=== PATIENT | male | born 1965 | race Caucasian/White ===

== ENCOUNTER 2019-12-23 07:12 | Observation (INO) | payer OTHER, SELFPAY ==
[2019-12-23] VITALS (14 sets, daily range): BP systolic 111–151; BP diastolic 69–85; PULSE 81–102; RESP 12–20; TEMP 36.7–36.9; O2SAT 97–100; BMI 31.6
--- NOTE | ~2019-12-23 | CT_ITS ---
EXAMINATION: CT brain wo con DATE: 12/23/2019 07:47 INDICATION: Headache post fall. Feels off balance. TECHNIQUE: Computed tomography (CT) of the head was performed without intravenous contrast. Sagittal and coronal reconstructions were performed. The mA was adjusted according to patient size. Iterative reconstruction technique was employed. The dose-length product was 681.00 mGy-cm. COMPARISON: None FINDINGS: No fracture. No acute intracranial hemorrhage, acute infarction or abnormal extra axial fluid collect ion. Ventricles are normal and symmetric. No mass/mass effect. The orbits, paranasal sinuses and mast oid air cells are normal. IMPRESSION: 1. No fracture or acute intracranial process. Reviewed, dictated and finalized at location A.
--- NOTE | ~2019-12-23 | CT_ITS ---
EXAMINATION: CT cervical spine wo con DATE: 12/23/2019 07:47 INDICATION: Neck pain post fall 2 days prior. TECHNIQUE: Computed tomography (CT) of the cervical spine was performed without intravenous contrast. Automated exposure control and iterative reconstruction technique were employed. The dose-length pro duct was 561.57 mGy-cm. COMPARISON: None FINDINGS: Mild reversal of the normal cervical lordosis. No spondylolisthesis or facet subluxation. Vertebral b alberto heights are normal. No fracture. Mild disc height loss at C2-C3 T5 C6 through C7-T1 and moderate disc height loss at T1-T2 and T2-T3. Bulky anterior osteophytes at C4-C5 through C6-C7. Visualized ai rway and apices of lungs are clear. Cervical soft tissues are unremarkable. The following disc levels are specifically discussed: C2-C3: Disc is mildly bulging. There is mild bilateral uncovertebral joint osteoarthritis. There is m ild bilateral facet joint osteoarthritis. There is no neural foraminal stenosis. There is no central canal stenosis. C3-C4: Disc is mildly bulging. There is mild bilateral uncovertebral joint osteoarthritis. There is m ild right and severe left facet joint osteoarthritis. There is mild left neural foraminal stenosis. T here is no central canal stenosis. C4-C5: Disc is mildly bulging. There is mild bilateral uncovertebral joint osteoarthritis. There is m ild right and moderate left facet joint osteoarthritis. There is mild bilateral neural foraminal sten osis. There is no central canal stenosis. C5-C6: Disc is bulging. There is mild right and moderate left uncovertebral joint osteoarthritis. The re is mild bilateral facet joint osteoarthritis. There is mild bilateral neural foraminal stenosis. T here is mild central canal stenosis. C6-C7: Disc is bulging. There is moderate bilateral uncovertebral joint osteoarthritis. There is mode rate bilateral facet joint osteoarthritis. There is mild bilateral neural foraminal stenosis. There i s mild to moderate central canal stenosis. C7-T1: Disc is bulging. There is moderate bilateral uncovertebral joint osteoarthritis. There is placido re bilateral facet joint osteoarthritis. There is mild bilateral neural foraminal stenosis. There is mild central canal stenosis. T1-T2 and T2-T3: Contrast of the soft tissues is insufficient to assess for disc bulges are secondary central canal stenosis. No stenosis of the osseous central canal. There is severe bilateral facet os teoarthritis contributing to mild to moderate neural foraminal stenosis at both levels. IMPRESSION: 1. Mild to moderate cervical and upper thoracic spondylosis. No acute osseous abnormality. Reviewed, dictated and finalized at location A. IMPRESSION: 1. Mild to moderate cervical and upper thoracic spondylosis. No acute osseous a bnormality.
--- NOTE | 2019-12-23 07:32 | ED.GENADULT ---
HPI - General Adult General Chief complaint: Head Injury Stated complaint: fall Source: patient History of Present Illness HPI narrative: Patient is a 54 y/o male complaining of severe headache and neck after a fall 2 days ago. He states that he slipped in the shower and struck his head on side of bath tub. He denies having LOC. He describes his headache as sharp and rates it 8-9/10. There is no alleviating or exacerbating factor. He has no taken any meds for pain. He has no nausea, vomiting or any focal weakness/numbness. He has not sought medical attention prior to coming to ED today. He states that he had last Tetanus in June this morning during routine visit with his PCP. He also states that he usually has 2 drinks a day, but has not been drinking for several days. Related Data Home Medications Medication Instructions Recorded Confirmed atenolol 25 mg PO DAILY 12/23/19 citalopram [Celexa] 10 mg PO DAILY 12/23/19 hydrochlorothiazide 25 mg PO DAILY 12/23/19 losartan 50 mg PO DAILY 12/23/19 Allergies Allergy/AdvReac Type Severity Reaction Status Date / Time No Known Allergies Allergy Verified 12/23/19 07:49 Review of Systems Constitutional: Constitutional: Denies chills, Denies fever(s), Reports headache(s) and Denies weakness Eyes: Eyes: Denies blurry vision ENT: Reports headache(s) and Denies neck pain Cardiovascular: Cardiovascular: Denies chest pain and Denies dyspnea Respiratory: Respiratory: Denies cough and Denies dyspnea Gastrointestinal: Gastrointestinal: Denies abdominal pain, Denies diarrhea, Denies nausea and Denies vomiting Genitourinary: Genitourinary: Denies hematuria and Denies dysuria Musculoskeletal: Musculoskeletal: Reports as per HPI, Denies back pain, Denies neck pain and Reports other (neck pain) Neurologic: Reports headache(s) and Denies weakness [facility] Family History Family History (Updated 12/23/19 @ 15:28 by Mindi Cartagena RN) Other Adopted Social History Social History Smoking status: Current every day smoker Tobacco type: cigarettes Alcohol intake: former Drinks per week: 8 Substance use: never Substance use type: does not use Last use: patient states he last drank alcohol 3 days ago, but is quitting. Gender identity (if verbalized by the patient): Male Spiritual care concerns: No Exam Const: General: no acute distress and well developed Orientation/consciousness: oriented to person, oriented to place, oriented to time and patient oriented x3 HENMT: Head: normocephalic Ears: external ears normal General nose exam: Normal external nose present Eyes: General: appearance normal, both eyes and all related structures Conjunctivae: conjunctivae normal Neck: Neck: normal visual inspection and full ROM Chest: Chest palpation & inspection: normal inspection of the chest and no tenderness Resp: Effort & Inspection: normal respiratory effort and able to speak in complete sentences Cardio: Rate: regular rate Rhythm: regular rhythm GI: GI Palp: No abdominal tenderness and Yes Soft to palpation Skin: General skin exam: normal color and turgor normal Trauma: laceration (healing laceration occipital scalp) Neuro: General: oriented to person, oriented to place, oriented to time and patient oriented x3 Cranial nerves: Yes CN's II-XII intact bilaterally Cognition (Neuro): normal cognition Speech: normal speech Motor exam (neuro): 5/5 motor strength present throughout Sensory Exam: normal sensation Coordination: [id number] test normal and [id number] test normal Extrem: General: normal to inspection, full ROM and no pedal edema Psych: Appearance: grossly normal Mental Status: mental status grossly normal Affect: normal affect Course Consultations Consultation #1: Discussed with RASHID Ortiz, who agrees to admit to Dr. Delgadillo. Date: 12/23/19 Vital Signs Vital signs: Vital Signs
[2019-12-23] MEDS: ACETAMINOPHEN 325 MG TABLET 650 MG PO ×2 (07:51→17:22)
[2019-12-23] MEDS: KETOROLAC (*BKC) 60 MG/2 ML VIAL IM (09:12)
[2019-12-23] MEDS: chlordiazePOXIDE 25 MG CAPSULE PO ×2 (10:26→23:11)
[2019-12-23 10:42] LABS: Basophils Percent Auto 0.6 % (0.2-1.2); Eosinophils Absolute Auto 2.7 K/mm3 (0-0.3); Eosinophils Percent Auto 39.4 % (0-4.4); Hematocrit 33.9 % (42.0-52.0); Hemoglobin 10.7 g/dL (14.0-18.0); Immature Granulocyte Absolute 0.02 K/mm3 (0.00-0.031); Immature Granulocyte Percent A 0.3 % (0-0.5); Lymphocytes Absolute Auto 0.96 K/mm3 (0.9-3.2); Lymphocytes Percent Auto 14.1 % (18.3-44.2); Mean Corpuscular HGB Conc 31.6 g/dl (32-36); Mean Corpuscular Hemoglobin 22.9 pg (26-34); Mean Corpuscular Volume 72.4 fl (80-100); Mean Platelet Volume 8.6 fl (7.4-10.4); Monocytes Absolute Auto 0.5 K/mm3 (0.1-0.6); Monocytes Percent Auto 6.7 % (2.6-8.5); Neutrophils Absolute Auto 2.7 K/mm3 (1.3-6.7); Neutrophils Percent Auto 38.9 % (45.5-73.1); Platelet Count Result 183 k/mm3 (150-375); Red Blood Count 4.68 M/mm3 (4.6-6.20); Red Cell Distribution Width 18.7 % (11.5-14.5); White Blood Count 6.8 K/mm3 (4.5-10.0)
[2019-12-23 10:52] LABS: Ethanol 38 mg/dL (<10)
[2019-12-23 10:53] LABS: Alanine Aminotransferase 35 U/L (4-50); Albumin Level 4.9 g/dL (3.5-5.1); Alkaline Phosphatase 127 U/L (38-126); Anion Gap 22 mmol/L (8-16); Aspartate Amino Transferase 80 U/L (17-59); Blood Urea Nitrogen 18 mg/dL (9-20); Calcium 9.3 mg/dL (8.4-10.2); Carbon Dioxide 22 mmol/L (22-30); Chloride 90 mmol/L (98-107); Estimated CRCL calculation 122 ml/min; Estimated Glomerular Filt Rate > 60; Glucose 128 mg/dL (75-110); Potassium 4.1 mmol/L (3.4-5.0); Sodium 134 mmol/L (137-145)
[2019-12-23 11:36] LABS: Add Urine Microscopic? YES; Appearance Urine Clear (Clear); Bacteria Urine Trace /hpf; Bilirubin Urine Negative (Negative); Blood Urine Negative (Negative); Color Urine Yellow (Yellow); Glucose Urine UA Negative (Negative); Ketones Urine 1+ mg/dL (Negative); Leukocyte Esterase Ur Negative LEU/UL (Negative); Mucus Urine Heavy /lpf; Nitrate Urine Negative (Negative); Protein Urine 1+ mg/dL (Negative); RBC Urine 0-2 /hpf (0-2); Specific Grav Ur 1.015 (1.001-1.035); Squamous Epithelial Cell Urine Rare /hpf (Few); Urobilinogen Urine Negative mg/dL (<2.0)
--- NOTE | 2019-12-23 15:20 | ADMGEN ---
This patient, Pool Cid, was admitted to 2 Medical Room 249-01. Patient/family oriented to hospital policies and general routines including ID bracelet, bed and alarms, visiting hours, pain management, procedures, bathroom and other care routines, personal items, smoking policy, room service/diet, and visiting hours. Valuables list has been completed. Information on how to activate the Rapid Response Team has been discussed. Patient/Family are encouraged to report perceived risks to care and to ask questions if they do not understand what they are told or what they should do. Report received from AMRIK Lamas.
[2019-12-23] MEDS: THIAMINE HCL 200 MG/2 ML VIAL 100 MG IV PUSH (17:23)
[2019-12-23] MEDS: chlordiazePOXIDE 10 MG CAPSULE PO (17:33)
[2019-12-23 17:56] LABS: INR 1.2; Prothrombin Time 14.6 Seconds (11.1-14.7)
[2019-12-23 17:57] LABS: Partial Thromboplastin Time 27.4 SECONDS (22.3-36.8)
[2019-12-23 17:58] LABS: Anion Gap 19 mmol/L (8-16); Blood Urea Nitrogen 21 mg/dL (9-20); Calcium 9.3 mg/dL (8.4-10.2); Carbon Dioxide 25 mmol/L (22-30); Chloride 89 mmol/L (98-107); Estimated CRCL calculation 121 ml/min; Estimated Glomerular Filt Rate > 60; Glucose 121 mg/dL (75-110); Magnesium 2.2 mg/dL (1.6-2.3); Potassium 4.5 mmol/L (3.4-5.0); Sodium 133 mmol/L (137-145)
[2019-12-23 18:27] LABS: Amphetamine Screen Urine Negative (Negative); Barbiturate Screen Urine Negative (Negative); Benzodiazepines Screen Urine Negative (Negative); Cannabinoid Screen Urine Negative (Negative); Cocaine Screen Urine Negative (Negative); Methadone Screen Urine Negative (Negative); Opiate Screen Urine Negative (Negative); Phencyclidine Screen Urine Negative (Negative)
[2019-12-23 19:25] LABS: Folic Acid > 20.0 ng/mL (2.76->20)
[2019-12-23 19:27] LABS: Iron 66 ug/dL (49-181)
[2019-12-23 19:36] LABS: Percent Iron Saturation 14 % (20-50)
--- NOTE | 2019-12-23 19:45 | PM.IMHP ---
H&P: HPI History of Present Illness Date/Time: 12/23/19 19:45 Chief complaint: Balance problems after head injury 2 days ago. Narrative: Pool Cid is a 54-year-old male with history of alcohol abuse, hypertension, type 2 diabetes mellitus no longer on medication after bariatric surgery, and diabetic peripheral neuropathy who presented to the emergency department earlier today via EMS from a local motel for evaluation of balance issues after a fall. He is from [place] and is en route to deliver a dog to his mother in [place]. He got into town on , and apparently consumed a significant amount of alcohol that evening. The following day when he was getting out of the shower, he slipped and fell, striking the back of his head. He does not believe the fall was due to his alcohol consumption, and instead blames it on his neuropathy and it sounds as though he has poor balance because of such. He had no loss of consciousness with the head injury, and denies any other injuries. Since that time, he has been more off balance than usual, to the point where he is having to hold onto furniture or gale to help steady himself. I feel like I am falling sometimes. Because of the balance issues, he decided to stay a couple of extra days as he did not feel comfortable driving. Today he was not a whole lot better, and decided to call the ambulance to come in for evaluation. At the time my evaluation he is complaining of a stabbing and throbbing headache where he sustained his laceration, rating the pain an 8/10. He has not gotten any relief with the morphine given to him. Additionally, he complains of anxiety and tremors, which he blames on mild alcohol withdrawal as he has not had a drink since . With regards to his alcohol consumption, he tells me that he is more of a binge drinker, but does not give me specific quantities. He denies ever having signs or symptoms of significant alcohol withdrawal, or alcohol withdrawal seizures. He also denies auditory and visual changes. Specifically no tinnitus or aural fullness. He has not felt lightheaded, it does not sound as though he has tech spoke vertigo either. He denies that his balance is worse with change in position or change in head position. He denies focal weakness and paresthesias (other than that of his chronic neuropathy which is mainly in his feet). No chest pain, pleuritic pain, or palpitations. Review of Systems Review of Systems: Narrative: Twelve systems were reviewed with pertinent positives and negatives as per HPI. No fever, chills, or sweats. No recent cold or flu symptoms. He denies cough and shortness of breath. No dysphagia. He is scheduled to have vocal cord polyps removed in the next coming weeks. A recent colonoscopy demonstrated several benign colon polyps. Apparently that colonoscopy was prompted due to iron deficiency anemia, and he is now taking iron. He has diarrhea on occasion. He denies nausea and vomiting. No dysuria. No urinary or bladder incontinence. He denies back pain. No saddle anesthesia. Except as documented, all other systems were reviewed and are regular. [facility] Past Medical History Medical History (Updated 12/23/19 @ 23:44 by Diana Roy PA-C) Alcohol abuse Anxiety Diet-controlled diabetes mellitus No longer on medication after gastric bypass. Hypertension Peripheral neuropathy Surgical History Surgical History (Updated 12/23/19 @ 23:37 by Diana Roy PA-C) Gastric bypass status for obesity (~2007) History of appendectomy History of repair of right rotator cuff History of reverse total replacement of right shoulder joint Family History Family History (Updated 12/23/19 @ 15:28 by Mindi Cartagena RN) Other Adopted Social History Social History (Updated 12/23/19 @ 23:41 by Diana Roy PA-C) Social History: The patient lives in [place] with his and 2 dogs. They have grown children. He was a [employer]
[2019-12-23] MEDS: SODIUM CHLORIDE 0.9% IV 1,000 ML 999 ML IV CONT (21:51)
[2019-12-23] MEDS: MORPHINE SULFATE 2 MG/ML INJ IV PUSH (21:52)
[2019-12-23] MEDS: traMADol HCL 50 MG TABLET PO (23:11)
[2019-12-24] VITALS (13 sets, daily range): BP systolic 107–126; BP diastolic 66–78; PULSE 59–92; RESP 12–20; TEMP 36.2–37.2; O2SAT 95–100
[2019-12-24] MEDS: MORPHINE SULFATE 2 MG/ML INJ IV PUSH ×3 (04:26→20:29)
[2019-12-24] MEDS: chlordiazePOXIDE 25 MG CAPSULE PO ×3 (05:55→22:00)
[2019-12-24] MEDS: traMADol HCL 50 MG TABLET PO ×2 (05:55→14:32)
[2019-12-24] MEDS: FOLIC ACID 1 MG TABLET PO (09:06)
[2019-12-24] MEDS: THIAMINE HCL 100 MG TABLET PO (09:06)
[2019-12-24] MEDS: LOSARTAN POTASSIUM 50 MG TABLET PO (09:06)
[2019-12-24] MEDS: CITALOPRAM HYDROBROMIDE 10 MG TABLET PO (09:07)
[2019-12-24] MEDS: atenoloL 25 MG TABLET PO (09:07)
--- NOTE | 2019-12-24 16:19 | PM.IMPN ---
Progress Note: A&P Assessment and Plan (1) Alcohol abuse: Code(s): F10.10 - Alcohol abuse, uncomplicated Status: Acute Assessment and Plan: Patient CIWA score on arrival was 8-9 and he was started on Librium q.6 hours. He still having some slight tremors but otherwise feeling less anxious and is see while has been 2-3 today. I am going to wean down Librium and give 25 mg tonight and then 10 mg in the morning. If his CIWA score is still stable and he is asymptomatic we will not need to discharge him on any more Librium since he will be traveling in [facility] to [place] to see his mom Continue Thiamine and folic acid supplementation. continue monitoring patient's alcohol withdrawal symptoms and possibly discharge tomorrow if everything is within normal range. (2) Gait instability: Code(s): R26.81 - Unsteadiness on feet Status: Acute Assessment and Plan: He has chronic gait issues due to peripheral neuropathy, but it has been markedly worse since his head injury. He may very well have some instability secondary to a concussion. he does have a history of bariatric surgery but his vitamin B12 and folic acid were both normal which can sometimes cause gait disturbance. His neurologic examination was normal, he is not having any worsening symptoms at this time. Physical therapy worked with him and felt that his gait disturbance was most likely due to his neuropathy and no other acute abnormality. Will evaluate him overnight and see how he is feeling in the morning for further evaluation possible discharge. Initiate fall precautions. (3) Fall in bathtub: Code(s): W18.2XXA - Fall in (into) shower or empty bathtub, initial encounter Status: Acute Assessment and Plan: Patient reports a mechanical fall 2 days ago in the bathtub, but he believes his neuropathy had something to do with it but he was also very intoxicated as well. 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 She did not feel that when he walked he lean to 1 side, appeared to have stroke-like symptoms, or appeared to have ataxia from another cause. She believe most of his gait disturbances most likely from his neuropathy. Occupational therapy evaluated him and felt he could be discharged from their service. Initiate fall precautions. Will continue monitoring the patient with physical therapy and potentially discharge tomorrow if feeling better. (4) Laceration of scalp: Qualifiers: Encounter type: initial encounter Qualified Code(s): S01.01XA - Laceration without foreign body of scalp, initial encounter Code(s): S01.01XA - Laceration without foreign body of scalp, initial encounter Status: Acute Assessment and Plan: Obtained in fall 2 days ago And otherwise laceration had already been scabbed over and they did not feel he needed any further clean, gagandeep at this time. Up-to-date on tetanus shot. (5) Hypertension: Code(s): I10 - Essential (primary) hypertension Status: Acute Assessment and Plan: Blood pressures were reviewed and Are well controlled today. Continue antihypertensives and monitor daily. (6) Anxiety: Code(s): F41.9 - Anxiety disorder, unspecified Status: Acute Assessment and Plan: Continue citalopram. (7) Peripheral neuropathy: Code(s): G62.9 - Polyneuropathy, unspecified Status: Acute Assessment and Plan: Certainly a precipitating factor i
[2019-12-25] VITALS: PULSE 56
[2019-12-25 04:00] VITALS: PULSE 58
[2019-12-25 05:47] VITALS: BP 112/78; PULSE 85; RESP 20; TEMP 36.5; O2SAT 96
[2019-12-25 05:53] LABS: Anion Gap 7 mmol/L (8-16); Blood Urea Nitrogen 17 mg/dL (9-20); Calcium 8.7 mg/dL (8.4-10.2); Carbon Dioxide 31 mmol/L (22-30); Chloride 96 mmol/L (98-107); Estimated CRCL calculation 176 ml/min; Estimated Glomerular Filt Rate > 60; Glucose 97 mg/dL (75-110); Potassium 3.2 mmol/L (3.4-5.0); Sodium 134 mmol/L (137-145)
[2019-12-25] MEDS: chlordiazePOXIDE 10 MG CAPSULE PO (06:40)
[2019-12-25] MEDS: traMADol HCL 50 MG TABLET PO (06:43)
[2019-12-25 08:00] VITALS: PULSE 87
[2019-12-25] MEDS: POTASSIUM CHLORIDE 20 MEQ TABLET 40 MEQ PO (08:47)
[2019-12-25 08:48] VITALS: PULSE 85
[2019-12-25] MEDS: LOSARTAN POTASSIUM 50 MG TABLET PO (08:48)
[2019-12-25] MEDS: THIAMINE HCL 100 MG TABLET PO (08:48)
[2019-12-25] MEDS: hydroCHLOROthiazide 25 MG TABLET PO (08:48)
[2019-12-25] MEDS: FOLIC ACID 1 MG TABLET PO (08:48)
[2019-12-25] MEDS: CITALOPRAM HYDROBROMIDE 10 MG TABLET PO (08:48)
[2019-12-25] MEDS: atenoloL 25 MG TABLET PO (08:48)
--- NOTE | 2019-12-25 09:17 | PM.DS ---
DS: Admitting Diagnosis Admitting Diagnosis Admitting Diagnosis: Fall in (into) shower or empty bathtub, initial encounter DS: Discharge Diagnosis Discharge Diagnosis (1) Alcohol abuse: Code(s): F10.10 - Alcohol abuse, uncomplicated Status: Acute Assessment and Plan: Patient CIWA score on arrival was 8-9 and he was started on Librium q.6 hours. He is feeling much better today. CIWA has been 0 the last two times it was checked. He does not have anymore tremors. I weaned down his Librium and his last dose was 10 mg this morning. Continue Thiamine and folic acid supplementation upon discharge. Educated the patient to quit drinking alcohol to prevent further reoccurrance of falls and to prevent development of chronic gait disturbance from Wernicke's ataxia. (2) Gait instability: Code(s): R26.81 - Unsteadiness on feet Status: Acute Assessment and Plan: He has chronic gait issues due to peripheral neuropathy, but it has been markedly worse since his head injury. He may very well have some instability secondary to a concussion. he does have a history of bariatric surgery but his vitamin B12 and folic acid were both normal which can sometimes cause gait disturbance. His neurologic examination was normal, he is not having any worsening symptoms at this time. Physical therapy worked with him and felt that his gait disturbance was most likely due to his neuropathy and no other acute abnormality. Will evaluate him overnight and see how he is feeling in the morning for further evaluation possible discharge. Initiate fall precautions. (3) Fall in bathtub: Code(s): W18.2XXA - Fall in (into) shower or empty bathtub, initial encounter Status: Acute Assessment and Plan: Patient reports a mechanical fall 2 days ago in the bathtub, but he believes his neuropathy had something to do with it but he was also very intoxicated as well. 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 She did not feel that when he walked he lean to 1 side, appeared to have stroke-like symptoms, or appeared to have ataxia from another cause. She believe most of his gait disturbances most likely from his neuropathy. Occupational therapy evaluated him and felt he could be discharged from their service. Educated the patient to quit drinking alcohol to prevent further reoccurrance of falls and to prevent development of chronic gait disturbance from Wernicke's ataxia. (4) Laceration of scalp: Qualifiers: Encounter type: initial encounter Qualified Code(s): S01.01XA - Laceration without foreign body of scalp, initial encounter Code(s): S01.01XA - Laceration without foreign body of scalp, initial encounter Status: Acute Assessment and Plan: Obtained in fall 2 days ago And otherwise laceration had already been scabbed over and they did not feel he needed any further clean, gagandeep at this time. Up-to-date on tetanus shot. (5) Hypertension: Code(s): I10 - Essential (primary) hypertension Status: Acute Assessment and Plan: Blood pressures were reviewed and Are well controlled today. Continue antihypertensives and monitor daily. (6) Anxiety: Code(s): F41.9 - Anxiety disorder, unspecified Status: Acute Assessment and Plan: Continue citalopram. (7) Peripheral neuropathy: Code(s): G62.9 - Polyneuropathy, unspecified Status: Acute Assessment and Plan: Cer
[2019-12-25] MEDS: FERROUS SULFATE 324 MG TABLET PO (11:37)
== END 2019-12-25 11:45 | disposition home or self-care (01) ==
LOC: ANHED 13:48 → ANH2MED 14:01
PROVIDERS: Physician Assistant; Admitting Provider Family Medicine; Emergency Provider Emergency Medicine; Visit Provider Internal Medicine
DX: R51 Headache (principal); R26.81 Unsteadiness on feet; S01.01XA Laceration without foreign body of scalp, initial encounter; W18.2XXA Fall in (into) shower or empty bathtub, initial encounter; F10.10 Alcohol abuse, uncomplicated; M47.892 Other spondylosis, cervical region; M47.894 Other spondylosis, thoracic region; E11.42 Type 2 diabetes mellitus with diabetic polyneuropathy; F17.210 Nicotine dependence, cigarettes, uncomplicated; E86.0 Dehydration; E87.1 Hypo-osmolality and hyponatremia; I10 Essential (primary) hypertension; F41.9 Anxiety disorder, unspecified; D50.9 Iron deficiency anemia, unspecified; Z79.899 Other long term (current) drug therapy; Z98.84 Bariatric surgery status; Z96.611 Presence of right artificial shoulder joint
CPT/HCPCS: 36415; 70450; 72125; 80048; 80053; 80307; 81001; 82607; 82728; 82746; 83540; 83550; 83735; 84100; 85025; 85610; 85730; 96365; 96372; 96374; 96375; 96376; 97161; 97165; 99285; A9270; G0378; J1756; J1885; J2270; J3411; J7030